=== PATIENT | female | born 1950 | race Caucasian/White ===

== ENCOUNTER 2018-02-15 23:36 | Emergency (ER) | payer MEDICARE ==
[~2018-02-15] VITALS: Ht 157.5 cm; Wt 72.6 kg
[~2018-02-15 23:36] MED LIST: ASPIRIN EC81 MG PO; ASPIRIN325 MG PO; COLACE100 MG PO; FENOFIBRATE160 MG PO; FIORINAL 50-321 EACH PO; FISH OIL 1,0001 EAC1 PO; FISH OIL 1,0001 EAC3 PO; FUROSEMIDE20 MG PO; HUMALOG100 UNIT/1 SUB-Q; LANTUS SOL100 UNIT/1 SUB-Q; LEVEMIR100 UNIT/1 SUB-Q; LIPITOR80 MG PO; LISINOPRIL20 MG PO; MAG DELAY64 MG PO; METFORMIN HCL500 MG PO; METOPROLOL SUCC25 MG PO; NORCO 5-325 TA1 EACH PO; NOVOLOG100 UNITS/ SUB-Q; VALIUM5 MG PO; ZOCOR10 MG PO
[2018-02-15] MEDS ORDERED: VITAMIN D1000 UNIT PO (23:54)
[2018-02-15] MEDS ORDERED: GLUCOPHAGE500 MG PO (23:55)
[2018-02-16] MEDS ORDERED: KEFLEX500 MG PO (04:07)
== END 2018-02-16 04:22 | disposition home or self-care (01) ==
LOC: ED 23:36
DX: N39.0 Urinary tract infection, site not specified (principal); E11.9 Type 2 diabetes mellitus without complications; I10 Essential (primary) hypertension; E78.5 Hyperlipidemia, unspecified; Z87.891 Personal history of nicotine dependence; Z79.899 Other long term (current) drug therapy; Z79.82 Long term (current) use of aspirin; Z79.4 Long term (current) use of insulin
CPT/HCPCS: 36415; 74176; 80053; 81001; 85025; 87077; 87088; 87186; 99284-25

== ENCOUNTER 2019-08-01 19:31 | Emergency (ER) | payer MEDICARE ==
[~2019-08-01] VITALS: Ht 157.5 cm; Wt 61.2 kg
[~2019-08-01 19:31] MED LIST changes: +GLUCOPHAGE500 MG PO; +KEFLEX500 MG PO; +VITAMIN D1000 UNIT PO
[2019-08-01] MEDS ORDERED: INDAPAMIDE1.25 MG PO (19:50)
[2019-08-01] MEDS ORDERED: CEPHALEXIN500 MG PO (19:50)
[2019-08-01] MEDS ORDERED: TORSEMIDE20 MG PO (19:51)
[2019-08-01] MEDS ORDERED: AMLODIPINE BESYL5 MG PO (19:51)
[2019-08-01] MEDS ORDERED: NORCO 5-325 TA1 EACH PO (21:26)
== END 2019-08-01 21:43 | disposition home or self-care (01) ==
LOC: ED 19:31
DX: S63.502A Unspecified sprain of left wrist, initial encounter (principal); S80.02XA Contusion of left knee, initial encounter; S00.83XA Contusion of other part of head, initial encounter; E11.9 Type 2 diabetes mellitus without complications; I10 Essential (primary) hypertension; E78.5 Hyperlipidemia, unspecified; Z79.899 Other long term (current) drug therapy; Z79.82 Long term (current) use of aspirin; Z79.4 Long term (current) use of insulin; W19.XXXA Unspecified fall, initial encounter; Y92.007 Garden or yard of unspecified non-institutional (private) residence as the place of occurrence of the external cause
CPT/HCPCS: 70450; 70486; 73110; 73560; 99284-25

== ENCOUNTER 2019-11-16 17:16 | Emergency (ER) | payer MEDICARE ==
[~2019-11-16] VITALS: Ht 157.5 cm; Wt 63.5 kg
[~2019-11-16 17:16] MED LIST changes: +AMLODIPINE BESYL5 MG PO; +CEPHALEXIN500 MG PO; +INDAPAMIDE1.25 MG PO; +TORSEMIDE20 MG PO
[2019-11-16] MEDS ORDERED: ZOLOFT50 MG PO (17:34)
[2019-11-16] MEDS ORDERED: NITROSTAT0.4 MG SL (17:35)
[2019-11-16] MEDS ORDERED: RENVELA800 MG PO (17:35)
--- NOTE | 2019-11-18 11:26 | EKG ---
[facility] [address] [facility] [place], [place] [address] Signed AV dual-paced rhythm Abnormal ECG No previous ECGs available Confirmed by ARNOLD RUSHING MD ([id number]) on 11/18/2019 11:26:17 AM Electronically Signed By: ARNOLD RUSHING MD 11/18/19 1126 PATIENT NAME: ELBA HOWARD Electrocardiogram DATE OF : 46 PHYSICIAN: ARNOLD RUSHING MD REPORT #: [id number] REPORT IS CONFIDENTIAL AND NOT TO BE RELEASED WITHOUT AUTHORIZATION
== END 2019-11-16 19:25 | disposition home or self-care (01) ==
LOC: ED 17:16
DX: R07.9 Chest pain, unspecified (principal); I12.9 Hypertensive chronic kidney disease with stage 1 through stage 4 chronic kidney disease, or unspecified chronic kidney disease; N18.9 Chronic kidney disease, unspecified; R51.9 Headache, unspecified; E11.22 Type 2 diabetes mellitus with diabetic chronic kidney disease; E78.5 Hyperlipidemia, unspecified; Z79.899 Other long term (current) drug therapy; Z79.82 Long term (current) use of aspirin; Z79.4 Long term (current) use of insulin
CPT/HCPCS: 71045; 80053; 83735; 84484; 85025; 93005; 93010; 99285-25

== ENCOUNTER 2020-02-01 23:06 | Emergency (ER) | payer MEDICARE ==
[~2020-02-01] VITALS: Ht 157.5 cm; Wt 63.5 kg
[~2020-02-01 23:06] MED LIST changes: +NITROSTAT0.4 MG SL; +RENVELA800 MG PO; +ZOLOFT50 MG PO
--- OUTSIDE RECORDS SUMMARY | 2020-02-01 23:08 | XMS ---
PreManage Notification: ELBA HOWARD Security Safety Investigator/Cause Analyst Events No recent Security Events currently on file CRITERIA MET - PDMP CARE PROVIDERS SAGAR [facility] Current PHONE: [phone] Yamileth has no Care Guidelines for this patient. E.Deepa VISIT COUNT ([address] [facility] TOTAL 4 NOTE: Visits indicate total known visits. ED/UCC VISIT TRACKING (12 MO.) 02/01/2020 23:06 [facility] [place] TYPE: Emergency COMPLAINT: - SOB 11/16/2019 17:17 [facility] [place] TYPE: Emergency COMPLAINT: - CHEST WALL PAIN DIAGNOSES: - HEADACHE, UNSPECIFIED - medical terminologist (current) use of aspirin - residential (current) use of insulin - Other chest pain - Type 2 diabetes mellitus with diabetic chronic kidney disease - Other lobsterman (current) drug therapy - Hyperlipidemia, unspecified - Chest pain, unspecified - Chronic kidney disease, unspecified - Hypertensive chronic kidney disease with stage 1 through stage 4 chronic kidney disease, or unspecified chronic kidney disease - Headache, unspecified 08/01/2019 19:33 [facility] [place] TYPE: Emergency COMPLAINT: - FALL, BODY PAIN DIAGNOSES: - Garden or yard of unspecified non-institutional (private) residence as the place of occurrence of the external cause - Pain in left knee - Type 2 diabetes mellitus without complications - Contusion of left knee, initial encounter - Other lobsterman (current) drug therapy - residential (current) use of aspirin - Unspecified fall, initial encounter - Contusion of other part of head, initial encounter - Hyperlipidemia, unspecified - Unspecified sprain of left wrist, initial encounter - Essential (primary) hypertension - residential (current) use of insulin [facility]01/2019 17:[facility] DIAGNOSES: - Vascular Access Problem - Other postprocedural complications of skin and subcutaneous tissue INPATIENT VISIT TRACKING (12 MO.) No inpatient visits to display in this time frame [id number]
--- NOTE | 2020-02-03 13:52 | EKG ---
[facility] [address] [place] [address] Signed Ventricular-paced rhythm Abnormal ECG When compared with ECG of 16-NOV-2019 17:24, Vent. rate has increased BY 20 BPM Confirmed by ARNOLD RUSHING MD ([id number]) on 02/03/2020 1:52:01 PM Electronically Signed By: ARNOLD RUSHING MD 02/03/20 1352 PATIENT NAME: HOWARDELBA Electrocardiogram DATE OF : 46 PHYSICIAN: ARNOLD RUSHING MD REPORT #: [id number] REPORT IS CONFIDENTIAL AND NOT TO BE RELEASED WITHOUT AUTHORIZATION
== END 2020-02-02 01:14 | disposition home or self-care (01) ==
LOC: ED 23:06
DX: J81.1 Chronic pulmonary edema (principal); E78.5 Hyperlipidemia, unspecified; N18.6 End stage renal disease; I12.0 Hypertensive chronic kidney disease with stage 5 chronic kidney disease or end stage renal disease; E11.22 Type 2 diabetes mellitus with diabetic chronic kidney disease; Z87.891 Personal history of nicotine dependence; Z79.899 Other long term (current) drug therapy; Z20.828 Contact with and (suspected) exposure to other viral communicable diseases
CPT/HCPCS: 71045; 80053; 83880; 84484; 85025; 93005; 93010; 96374; 99285-25; C9803; J1940; U0003

== ENCOUNTER 2020-03-13 21:28 | Emergency (ER) | payer MEDICARE ==
[~2020-03-13] VITALS: Ht 157.5 cm; Wt 63.5 kg
--- OUTSIDE RECORDS SUMMARY | 2020-03-13 21:30 | XMS ---
PreManage Notification: ELBA HOWARD Security Leadership Coach Events No recent Security Events currently on file CRITERIA MET - PDMP CARE PROVIDERS SAGAR [facility] Current PHONE: [phone] Yamileth has no Care Guidelines for this patient. E.Deepa V[facility] (12 MO.) [facility] TOTAL 5 NOTE: Visits indicate total known visits. ED/UCC VISIT TRACKING (12 MO.) 03/13/2020 21:28 [facility] [place] TYPE: Emergency COMPLAINT: - ABDOMINAL PAIN 02/01/2020 23:06 [facility] [place] TYPE: Emergency COMPLAINT: - SOB DIAGNOSES: - End stage renal disease - Shortness of breath - Hyperlipidemia, unspecified - Personal history of nicotine dependence - Other residential (current) drug therapy - Hypertensive chronic kidney disease with stage 5 chronic kidney disease or end stage renal disease - Contact with and (suspected) exposure to other viral communicable diseases - Chronic pulmonary edema - Type 2 diabetes mellitus with diabetic chronic kidney disease 11/16/2019 17:17 [facility] [place] TYPE: Emergency COMPLAINT: - CHEST WALL PAIN DIAGNOSES: - HEADACHE, UNSPECIFIED - local intermodal truck driver (current) use of aspirin - custodial (current) use of insulin - Other chest pain - Headache, unspecified - Type 2 diabetes mellitus with diabetic chronic kidney disease - Other residential (current) drug therapy - Hyperlipidemia, unspecified - [...] of left knee, initial encounter - Other residential (current) drug therapy - custodial (current) use of aspirin - Unspecified fall, initial encounter - Contusion of other part of head, initial encounter - Hyperlipidemia, unspecified - Unspecified sprain of left wrist, initial encounter - Essential (primary) hypertension - local intermodal truck driver (current) use of insulin 04/01/2019 17:41 [facility] TYPE: Emergency DIAGNOSES: - Vascular Access Problem - Other postprocedural complications of skin and subcutaneous tissue INPATIENT VISIT TRACKING (12 MO.) No inpatient visits to display in this time frame [email or web address]
[2020-03-13] MEDS ORDERED: COREG12.5 MG PO (21:44)
[2020-03-13] MEDS ORDERED: ASPIRIN81 MG PO (21:44)
[2020-03-13] MEDS ORDERED: CEFDINIR300 MG PO (21:45)
[2020-03-13] MEDS ORDERED: LANTUS SOL100 UNIT/1 SUB-Q (21:46)
--- NOTE | 2020-03-14 12:47 | EKG ---
[facility] [address] [place] [address] Signed Atrial-sensed ventricular-paced rhythm Abnormal ECG When compared with ECG of 01-FEB-2020 23:10, Vent. rate has decreased BY 22 BPM Confirmed by ADARSH ABREU MD ([id number]) on 03/14/2020 12:47:50 PM Electronically Signed By: ADARSH ABREU MD 03/14/20 1247 PATIENT NAME: ELBA HOWARD Electrocardiogram DATE OF : 46 PHYSICIAN: ADARSH ABREU MD REPORT #: [id number] REPORT IS CONFIDENTIAL AND NOT TO BE RELEASED WITHOUT AUTHORIZATION
== END 2020-03-14 08:30 | disposition home or self-care (01) ==
LOC: ED 21:28
DX: K65.9 Peritonitis, unspecified (principal); Z99.2 Dependence on renal dialysis; E11.22 Type 2 diabetes mellitus with diabetic chronic kidney disease; I12.0 Hypertensive chronic kidney disease with stage 5 chronic kidney disease or end stage renal disease; E78.5 Hyperlipidemia, unspecified; N18.6 End stage renal disease; Z79.899 Other long term (current) drug therapy; Z79.4 Long term (current) use of insulin; Z79.82 Long term (current) use of aspirin
CPT/HCPCS: 74176; 80053; 81001; 82945; 83690; 84157; 84484; 85025; 87070; 87075; 87076; 87077; 87185; 87186; 87205; 89051; 93005; 93010; 96374; 96375; 96376; 99284-25; J0713; J1170; J2405; J3370

== ENCOUNTER 2020-08-22 16:36 | Emergency (ER) | payer MEDICARE ==
[~2020-08-22] VITALS: Ht 157.5 cm; Wt 63.5 kg
[~2020-08-22 16:36] MED LIST changes: +ASPIRIN81 MG PO; +CEFDINIR300 MG PO; +COREG12.5 MG PO
[2020-08-22] MEDS ORDERED: HYDROCODON-ACE1 EA10 PO (19:15)
== END 2020-08-22 19:49 | disposition home or self-care (01) ==
LOC: ED 16:36
DX: S83.92XA Sprain of unspecified site of left knee, initial encounter (principal); S93.402A Sprain of unspecified ligament of left ankle, initial encounter; W18.30XA Fall on same level, unspecified, initial encounter; E11.22 Type 2 diabetes mellitus with diabetic chronic kidney disease; I12.0 Hypertensive chronic kidney disease with stage 5 chronic kidney disease or end stage renal disease; E78.5 Hyperlipidemia, unspecified; N18.6 End stage renal disease; Z99.2 Dependence on renal dialysis; Z79.899 Other long term (current) drug therapy; Z79.4 Long term (current) use of insulin; Z79.82 Long term (current) use of aspirin
CPT/HCPCS: 73560; 73610; 99283-25

== ENCOUNTER 2020-08-28 15:58 | Emergency (ER) | payer MEDICARE ==
[~2020-08-28] VITALS: Ht 157.5 cm; Wt 63.5 kg
[~2020-08-28 15:58] MED LIST changes: +HYDROCODON-ACE1 EA10 PO
--- OUTSIDE RECORDS SUMMARY | 2020-08-28 16:00 | XMS ---
PreManage Notification: ELBA HOWARD Security Microfilm Camera Operator Events No recent Security Events currently on file CRITERIA MET - [facility] - 2 Visits in 30 Days - [facility] CARE PROVIDERS SAGAR [facility] Current PHONE: [phone] Yamileth has no Care Guidelines for this patient. E.Deepa VISIT COUNT (12 MO.) [address] TOTAL 6 NOTE: Visits indicate total known visits. ED/C VISIT TRACKING (12 MO.) 08/28/2020 15:59 [facility] TYPE: Emergency COMPLAINT: - R SIDE RIB PAIN 08/22/2020 16:37 [facility] TYPE: Emergency COMPLAINT: - LEFT KNEE AND ANKLE INJURY DIAGNOSES: - End stage renal disease - Sprain of unspecified ligament of left ankle, initial encounter - Dependence on renal dialysis - Type 2 diabetes mellitus with diabetic chronic kidney disease - Hypertensive chronic kidney disease with stage 5 chronic kidney disease or end stage renal disease - terminal system operator (current) use of aspirin - terminal system operator (current) use of insulin - Other penitentiary (current) drug therapy - Hyperlipidemia, unspecified - Sprain of unspecified site of left knee, initial encounter - Fall on same level, unspecified, initial encounter [facility]14/2020 20:[facility] TYPE: Emergency DIAGNOSES: - Abdominal Cramping - Peritonitis, unspecified - Dialysis (Asymptomatic) - Vascular Access Problem - Infection and inflammatory reaction due to peritoneal dialysis catheter, initial encounter 03/13/2020 21:28 [facility] TYPE: Emergency COMPLAINT: - ABDOMINAL PAIN DIAGNOSES: - Dependence on renal dialysis - End stage renal disease - terminal system operator (current) use of aspirin - Hypertensive chronic kidney disease with stage 5 chronic kidney disease or end stage renal disease - Type 2 diabetes mellitus with diabetic chronic kidney disease - Unspecified abdominal pain - Peritonitis, unspecified - [facility] (current) use of insulin - Other marine oil terminal superintendent (current) drug therapy - Hyperlipidemia, unspecified 02/01/2020 23:06 [facility] TYPE: Emergency COMPLAINT: - SOB DIAGNOSES: - End stage renal disease - Shortness of breath - Hyperlipidemia, unspecified - Personal history of nicotine dependence - Other penitentiary (current) drug therapy - Hypertensive chronic kidney disease with stage 5 chronic kidney disease or end stage renal disease - Contact with and (suspected) exposure to other viral communicable diseases - Chronic pulmonary edema - Type 2 diabetes mellitus with diabetic chronic kidney disease 11/16/2019 17:17 [facility] [place] TYPE: Emergency COMPLAINT: - CHEST WALL PAIN DIAGNOSES: - HEADACHE, UNSPECIFIED - [facility] (current) use of aspirin - [facility] (current) use of insulin - Other chest pain - Headache, unspecified - Type 2 diabetes mellitus with diabetic chronic kidney disease - Other marine oil terminal superintendent (current) drug therapy - Hyperlipidemia, unspecified - Chest pain, unspecified - Chronic kidney disease, unspecified - Hypertensive chronic kidney disease with stage 1 through stage 4 chronic kidney disease, or unspecified chronic kidney disease - Headache, unspecified INPATIENT VISIT TRACKING (12 MO.) 03/14/2020 20:37 [facility] TYPE: Internal Medicine DIAGNOSES: - Disorder of bone, unspecified - Other specified disorders of peritoneum - Fever, unspecified - Acidosis - Hyperkalemia - Other disorders of plasma-protein metabolism, not elsewhere classified - Anemia in chronic kidney disease - Fistula of intestine - Type 2 diabetes mellitus with hyperglycemia - Female pelvic inflammatory disease, unspecified - Chronic kidney disease, unspecified - Infection and inflammatory reaction due to peritoneal dialysis catheter, subsequent encounter - Elevated white blood cell count, unspecified - Bacterial infection, unspecified - Unspecified severe protein-calorie malnutrition - Dependence on renal dialysis - Infection and inflammatory reaction due to peritoneal dialysis catheter, initial encounter - Other specified personal risk factors, not elsewhere classified - Other disorders of phosphorus metabolism - Disorder of mineral metabolism, unspecified - Other specified symptoms and signs involving the digestive system and abdomen - Essential (primary) hypertension - Peritonitis, unspecified - Perforation of intestine (nontraumatic) - Cutaneous abscess of abdominal wall - Atherosclerotic heart disease of [place] coronary artery without angina pectoris - Moderate protein-calorie malnutrition - End stage renal disease [id number]
[2020-08-28] MEDS ORDERED: HYDROCODON-ACE1 EA10 PO (18:38)
== END 2020-08-28 18:46 | disposition home or self-care (01) ==
LOC: ED 15:58
DX: S20.211A Contusion of right front wall of thorax, initial encounter (principal); X58.XXXA Exposure to other specified factors, initial encounter; E11.22 Type 2 diabetes mellitus with diabetic chronic kidney disease; I12.0 Hypertensive chronic kidney disease with stage 5 chronic kidney disease or end stage renal disease; E78.5 Hyperlipidemia, unspecified; N18.6 End stage renal disease; Z99.2 Dependence on renal dialysis; Z79.899 Other long term (current) drug therapy; Z79.4 Long term (current) use of insulin; Z79.82 Long term (current) use of aspirin
CPT/HCPCS: 71101; 99284-25

== ENCOUNTER 2020-10-03 21:01 | Emergency (ER) | payer MEDICARE ==
[~2020-10-03] VITALS: Ht 157.5 cm; Wt 63.5 kg
[2020-10-03] MEDS ORDERED: COLACE100 MG PO (22:04)
[2020-10-03] MEDS ORDERED: COREG3.125 MG PO (22:05)
[2020-10-03] MEDS ORDERED: COZAAR25 MG PO (22:06)
[2020-10-03] MEDS ORDERED: LIPITOR20 MG PO (22:07)
[2020-10-03] MEDS ORDERED: NEPHRO-VITE TA0.8 MG PO (22:07)
[2020-10-03] MEDS ORDERED: PEPCID20 MG PO (22:08)
[2020-10-03] MEDS ORDERED: MIDODRINE HCL5 MG PO (22:08)
[2020-10-03] MEDS ORDERED: SYNTHROID50 MCG PO (22:09)
[2020-10-03] MEDS ORDERED: ZOLOFT50 MG PO (22:09)
[2020-10-03] MEDS ORDERED: RENVELA800 MG PO (22:09)
[2020-10-03] MEDS ORDERED: OXYCODONE HCL5 MG PO (22:10)
[2020-10-03] MEDS ORDERED: MEGESTROL ACETA40 MG PO (22:10)
[2020-10-03] MEDS ORDERED: ZOLPIDEM TARTRAT5 MG PO (22:11)
--- OUTSIDE RECORDS SUMMARY | 2020-10-03 22:13 | XMS ---
PreManage Notification: ELBA HOWARD Security Product Development Actuary Events No recent Security Events currently on file CRITERIA MET - PDMP CARE PROVIDERS SAGAR [facility] Current PHONE: [phone] Yamileth has no Care Guidelines for this patient. E.Deepa VISIT COUNT ([address] [facility] TOTAL 7 NOTE: Visits indicate total known visits. ED/UCC VISIT TRACKING (12 MO.) 10/03/2020 21:02 [facility] [place] TYPE: Emergency COMPLAINT: - NECK PAIN 08/28/2020 15:59 [facility] [place] TYPE: Emergency COMPLAINT: - R SIDE RIB PAIN/ NON INJ DIAGNOSES: - Contusion of right front wall of thorax, initial encounter - Dependence on renal dialysis - Other bed bug exterminator (current) drug therapy - End stage renal disease - Hypertensive chronic kidney disease with stage 5 chronic kidney disease or end stage renal disease - Exposure to other specified factors, initial encounter - Type 2 diabetes mellitus with diabetic chronic kidney disease - Hyperlipidemia, unspecified - Other chest pain - terminologist (current) use of aspirin - terminologist (current) use of insulin 08/22/2020 16:37 [facility] [place] TYPE: Emergency COMPLAINT: - LEFT KNEE AND ANKLE INJURY DIAGNOSES: - End stage renal disease - Sprain of unspecified ligament of left ankle, initial encounter - Dependence on renal dialysis - Type 2 diabetes mellitus with diabetic chronic kidney disease - Hypertensive chronic kidney disease with stage 5 chronic kidney disease or end stage renal disease - terminologist (current) use of aspirin - [facility] (current) use of insulin - Other bed bug exterminator (current) drug therapy - Hyperlipidemia, unspecified - Sprain of unspecified site of left knee, initial encounter - Fall on same level, unspecified, initial encounter 03/14/2020 20:37 [facility] TYPE: Emergency DIAGNOSES: - Abdominal Cramping - Peritonitis, unspecified - Dialysis (Asymptomatic) - Vascular Access Problem - Infection and inflammatory reaction due to peritoneal dialysis catheter, initial encounter 03/13/2020 21:28 [facility] [place] TYPE: Emergency COMPLAINT: - ABDOMINAL PAIN DIAGNOSES: - Dependence on renal dialysis - End stage renal disease - [facility] (current) use of aspirin - Hypertensive chronic kidney disease with stage 5 chronic kidney disease or end stage renal disease - Type 2 diabetes mellitus with diabetic chronic kidney disease - Unspecified abdominal pain - Peritonitis, unspecified - [facility] (current) use of insulin - Other custodial (current) drug therapy - Hyperlipidemia, unspecified 02/01/2020 23:06 [facility] [place] TYPE: Emergency COMPLAINT: - SOB DIAGNOSES: - End stage renal disease - Shortness of breath - Hyperlipidemia, unspecified - Personal history of nicotine dependence - Other custodial (current) drug therapy - Hypertensive chronic kidney disease with stage 5 chronic kidney disease or end stage renal disease - Contact with and (suspected) exposure to other viral communicable diseases - Chronic pulmonary edema - Type 2 diabetes mellitus with diabetic chronic kidney disease 11/16/2019 17:17 [facility] [place] TYPE: Emergency COMPLAINT: - CHEST WALL PAIN DIAGNOSES: - HEADACHE, UNSPECIFIED - [facility] (current) use of aspirin - [facility] (current) use of insulin - Other chest pain - Headache, unspecified - Type 2 diabetes mellitus with diabetic chronic kidney disease - Other bed bug exterminator (current) drug therapy - Hyperlipidemia, unspecified - Chest pain, unspecified - Chronic kidney disease, unspecified - Hypertensive chronic kidney disease with stage 1 through stage 4 chronic kidney disease, or unspecified chronic kidney disease - Headache, unspecified INPATIENT VISIT TRACKING (12 MO.) 03/14/2020 20:37 [facility] TYPE: Internal Medicine DIAGNOSES: - Disorder of [...] abdominal wall - Atherosclerotic heart disease of [place] coronary artery without angina pectoris - Moderate protein-calorie malnutrition - End stage renal disease [email or web address]
[2020-10-03] MEDS ORDERED: PREDNISONE20 MG PO (23:39)
== END 2020-10-04 00:07 | disposition home or self-care (01) ==
LOC: ED 21:01
DX: I77.6 Arteritis, unspecified (principal); I12.0 Hypertensive chronic kidney disease with stage 5 chronic kidney disease or end stage renal disease; E11.22 Type 2 diabetes mellitus with diabetic chronic kidney disease; N18.6 End stage renal disease; Z99.2 Dependence on renal dialysis; E78.5 Hyperlipidemia, unspecified; Z79.899 Other long term (current) drug therapy; Z79.82 Long term (current) use of aspirin; Z79.4 Long term (current) use of insulin
CPT/HCPCS: 70450; 72125; 80053; 85025; 85651; 96374; 96376; 99284-25; J3010; J7512

== ENCOUNTER 2020-12-07 10:40 | Emergency (ER) | payer OTHER, MEDICARE ==
[~2020-12-07] VITALS: Ht 157.5 cm; Wt 59.1 kg
[~2020-12-07 10:40] MED LIST changes: +COREG3.125 MG PO; +COZAAR25 MG PO; +LIPITOR20 MG PO; +MEGESTROL ACETA40 MG PO; +MIDODRINE HCL5 MG PO; +NEPHRO-VITE TA0.8 MG PO; +OXYCODONE HCL5 MG PO; +PEPCID20 MG PO; +PREDNISONE20 MG PO; +SYNTHROID50 MCG PO; +ZOLPIDEM TARTRAT5 MG PO
--- OUTSIDE RECORDS SUMMARY | 2020-12-07 10:44 | XMS ---
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 E.Deepa VISIT COUNT (12 MO.) [facility] TOTAL 7 NOTE: Visits indicate total known visits. ED/UCC VISIT TRACKING (12 MO.) 12/07/2020 10:41 [facility] [place] TYPE: Emergency COMPLAINT: - FALL, LOWER BACK PAIN, WEAK 10/03/2020 21:02 [facility] [place] TYPE: Emergency COMPLAINT: - NECK PAIN DIAGNOSES: - Other giant cell arteritis - Hyperlipidemia, unspecified - Other medical imaging technologist (current) drug therapy - Hypertensive chronic kidney disease with stage 5 chronic kidney disease or end stage renal disease - End stage renal disease - Headache, unspecified - alarm installation technician (current) use of insulin - Arteritis, unspecified - alarm installation technician (current) use of oral hypoglycemic drugs - alarm installation technician (current) use of aspirin - Dependence on renal dialysis - Type 2 diabetes mellitus with diabetic chronic kidney disease 08/28/2020 15:59 [facility] [place] TYPE: Emergency COMPLAINT: - R SIDE RIB PAIN/ NON INJ DIAGNOSES: - Contusion of right front wall of thorax, initial encounter - Dependence on renal dialysis - Other [facility] (current) drug therapy - End stage renal disease - Hypertensive chronic kidney disease with stage 5 chronic kidney disease or end stage renal disease - Exposure to other specified factors, initial encounter - Type 2 diabetes mellitus with diabetic chronic kidney disease - Hyperlipidemia, unspecified - Other chest pain - [facility] (current) use of aspirin - [facility] (current) use of insulin 08/22/2020 16:37 [facility] TYPE: Emergency COMPLAINT: - LEFT KNEE AND ANKLE INJURY DIAGNOSES: - End stage renal disease - Sprain of unspecified ligament of left ankle, initial encounter - Dependence on renal dialysis - Type 2 diabetes mellitus with diabetic chronic kidney disease - Hypertensive chronic kidney disease with stage 5 chronic kidney disease or end stage renal disease - [facility] (current) use of aspirin - alarm installation technician (current) use of insulin - Other medical imaging technologist (current) drug therapy - Hyperlipidemia, unspecified - Sprain of unspecified site of left knee, initial encounter - Fall on same level, unspecified, initial encounter 03/14/2020 20:37 [facility] TYPE: Emergency DIAGNOSES: - Abdominal Cramping - Peritonitis, unspecified - Dialysis (Asymptomatic) - Vascular Access Problem - Infection and inflammatory reaction due to peritoneal dialysis catheter, initial encounter 03/13/2020 21:28 [facility] [place] TYPE: Emergency COMPLAINT: - ABDOMINAL PAIN DIAGNOSES: - Dependence on renal dialysis - End stage renal disease - alarm installation technician (current) use of aspirin - Hypertensive chronic kidney disease with stage 5 chronic kidney disease or end stage renal disease - Type 2 diabetes mellitus with diabetic chronic kidney disease - Unspecified abdominal pain - Peritonitis, unspecified - [facility] (current) use of insulin - Other usp (current) drug therapy - Hyperlipidemia, unspecified 02/01/2020 23:06 [facility] [place] TYPE: Emergency COMPLAINT: - SOB DIAGNOSES: - End stage renal disease - Shortness of breath - Hyperlipidemia, unspecified - Personal history of nicotine dependence - Other usp (current) drug therapy - Hypertensive chronic kidney disease with stage 5 chronic kidney disease or end stage renal disease - Contact with and (suspected) exposure to other viral communicable diseases - Chronic pulmonary edema - Type 2 diabetes mellitus with diabetic chronic kidney disease INPATIENT VISIT TRACKING (12 MO.) 03/14/2020 20:37 [facility] TYPE: Internal Medicine DIAGNOSES: - Disorder [...] abdominal wall - Atherosclerotic heart disease of [place] coronary artery without angina pectoris - Moderate protein-calorie malnutrition - End stage renal disease [email or web address]
[2020-12-07] MEDS ORDERED: DIAZEPAM5 MG PO (11:08)
[2020-12-07] MEDS ORDERED: AMLODIPINE BESYL5 MG PO (11:08)
== END 2020-12-07 14:11 | disposition home or self-care (01) ==
LOC: ED 10:40
DX: S83.92XA Sprain of unspecified site of left knee, initial encounter (principal); R07.89 Other chest pain; W18.30XA Fall on same level, unspecified, initial encounter; E78.5 Hyperlipidemia, unspecified; E11.22 Type 2 diabetes mellitus with diabetic chronic kidney disease; I12.0 Hypertensive chronic kidney disease with stage 5 chronic kidney disease or end stage renal disease; Z79.899 Other long term (current) drug therapy; Z79.82 Long term (current) use of aspirin
CPT/HCPCS: 71046; 72100; 72170; 73560; 80053; 85025; 99283-25

== ENCOUNTER 2020-12-09 07:48 | Emergency (ER) | payer MEDICARE ==
[~2020-12-09] VITALS: Ht 157.5 cm; Wt 59.0 kg
[~2020-12-09 07:48] MED LIST changes: +DIAZEPAM5 MG PO
--- OUTSIDE RECORDS SUMMARY | 2020-12-09 07:52 | XMS ---
PreManage Notification: ELBA HOWARD Security Heating Operators Engineer Events No recent Security Events currently on file CRITERIA MET - [facility] - 2 Visits in 30 Days - [facility] CARE PROVIDERS [facility] Current PHONE: [phone] Yamileth has no Care Guidelines for this patient. E.Deepa VISIT COUNT (12 MO.) [address] TOTAL 8 NOTE: Visits indicate total known visits. ED/UCC VISIT TRACKING (12 MO.) 12/09/2020 07:49 [facility] [place] TYPE: Emergency COMPLAINT: - R SIDE OF BODY PAIN, HURTS TO SWALLOW 12/07/2020 10:41 [facility] [place] TYPE: Emergency COMPLAINT: - FALL, LOWER BACK PAIN, WEAK 10/03/2020 21:02 [facility] [place] TYPE: Emergency COMPLAINT: - NECK PAIN DIAGNOSES: - Other giant cell arteritis - Hyperlipidemia, unspecified - Other [facility] (current) drug therapy - Hypertensive chronic kidney disease with stage 5 chronic kidney disease or end stage renal disease - End stage renal disease - Headache, unspecified - marine oil terminal superintendent (current) use of insulin - Arteritis, unspecified - intermediate (current) use of oral hypoglycemic drugs - marine oil terminal superintendent (current) use of aspirin - Dependence on renal dialysis - Type 2 diabetes mellitus with diabetic chronic kidney disease 08/28/2020 15:59 [facility] [place] TYPE: Emergency COMPLAINT: - R SIDE RIB PAIN/ NON INJ DIAGNOSES: - Contusion of right front wall of thorax, initial encounter - Dependence on renal dialysis - Other [facility] (current) drug therapy - End stage renal disease - Hypertensive chronic kidney disease with stage 5 chronic kidney disease or end stage renal disease - Exposure to other specified factors, initial encounter - Type 2 diabetes mellitus with diabetic chronic kidney disease - Hyperlipidemia, unspecified - Other chest pain - marine oil terminal superintendent (current) use of aspirin - marine oil terminal superintendent (current) use of insulin 08/22/2020 16:37 ESTELA [...] disease or end stage renal disease - marine oil terminal superintendent (current) use of aspirin - intermediate (current) use of insulin - Other [facility] (current) drug therapy - Hyperlipidemia, unspecified - Sprain of unspecified site of left knee, initial encounter - Fall on same level, unspecified, initial encounter 03/14/2020 20:37 [facility] [place] TYPE: Emergency DIAGNOSES: - Abdominal Cramping - Peritonitis, unspecified - Dialysis (Asymptomatic) - Vascular Access Problem - Infection and inflammatory reaction due to peritoneal dialysis catheter, initial encounter 03/13/2020 21:28 [facility]EL[facility] Reyez TYPE: Emergency COMPLAINT: - ABDOMINAL PAIN DIAGNOSES: - Dependence on renal dialysis - End stage renal disease - marine oil terminal superintendent (current) use of aspirin - Hypertensive chronic kidney disease with stage 5 chronic kidney disease or end stage renal disease - Type 2 diabetes mellitus with diabetic chronic kidney disease - Unspecified abdominal pain - Peritonitis, unspecified - intermediate (current) use of insulin - Other [facility] (current) drug therapy - Hyperlipidemia, unspecified 02/01/2020 23:06 [facility] [place] TYPE: Emergency COMPLAINT: - SOB DIAGNOSES: - End stage renal disease - Shortness of breath - Hyperlipidemia, unspecified - Personal history of nicotine dependence - Other terminal block assembler (current) drug therapy - Hypertensive chronic kidney disease with stage 5 chronic kidney disease or end stage renal disease - Contact with and (suspected) exposure to other viral communicable diseases - Chronic pulmonary edema - Type 2 diabetes mellitus with diabetic chronic kidney disease INPATIENT VISIT TRACKING (12 MO.) 03/14/2020 20:37 [facility] [place] [facility] [place] TYPE: Internal Medicine DIAGNOSES: - Disorder of [...] abdominal wall - Atherosclerotic heart disease of [place] coronary artery without angina pectoris - Moderate protein-calorie malnutrition - End stage renal disease [email or web address]
[2020-12-09] MEDS ORDERED: PENICILLIN V P500 MG PO (14:14)
[2020-12-09] MEDS ORDERED: OXYCODONE HCL5 MG PO (14:14)
--- NOTE | 2020-12-09 20:04 | EKG ---
[facility] [address] [place] [address] Signed AV dual-paced rhythm Abnormal ECG When compared with ECG of 13-MAR-2020 23:57, Vent. rate has decreased BY 20 BPM Confirmed by ADARSH ABREU MD ([id number]) on 12/09/2020 8:04:10 PM Electronically Signed By: ADARSH ABREU MD 12/09/202003 PATIENT NAME: ELBA HOWARD Electrocardiogram DATE OF : 46 PHYSICIAN: ADARSH ABREU MD REPORT #: [id number] REPORT IS CONFIDENTIAL AND NOT TO BE RELEASED WITHOUT AUTHORIZATION
== END 2020-12-09 14:32 | disposition home or self-care (01) ==
LOC: ED 07:48
DX: S50.02XA Contusion of left elbow, initial encounter (principal); K04.7 Periapical abscess without sinus; I12.0 Hypertensive chronic kidney disease with stage 5 chronic kidney disease or end stage renal disease; E11.22 Type 2 diabetes mellitus with diabetic chronic kidney disease; E78.5 Hyperlipidemia, unspecified; N18.6 End stage renal disease; Z79.899 Other long term (current) drug therapy; Z79.82 Long term (current) use of aspirin; Z79.4 Long term (current) use of insulin
CPT/HCPCS: 70486; 73080; 73200; 80053; 82150; 85025; 85651; 86140; 93005; 93010; 96374; 96376; 99284-25; J2270

== ENCOUNTER 2021-02-01 14:24 | Emergency (ER) | payer MEDICARE ==
[~2021-02-01] VITALS: Ht 157.5 cm; Wt 59.0 kg
[~2021-02-01 14:24] MED LIST changes: +PENICILLIN V P500 MG PO
--- OUTSIDE RECORDS SUMMARY | 2021-02-01 14:26 | XMS ---
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 E.Deepa VISIT COUNT (12 MO.) [address] [place] [address] ESTELA Campa TOTAL 8 NOTE: Visits indicate total known visits. ED/UCC VISIT TRACKING (12 MO.) 02/01/2021 14:25 [facility] [place] TYPE: Emergency COMPLAINT: - LT KNEE PAIN/INJURY 12/09/2020 07:49 [facility] [place] TYPE: Emergency COMPLAINT: - R SIDE OF BODY PAIN, HURTS TO SWALLOW DIAGNOSES: - Periapical abscess without sinus - Type 2 diabetes mellitus with diabetic chronic kidney disease - longterm (current) use of aspirin - Other snf (current) drug therapy - Contusion of left elbow, initial encounter - End stage renal disease - Periapical abscess without sinus - Contusion of left elbow, initial encounter - Hypertensive chronic kidney disease with stage 5 chronic kidney disease or end stage renal disease - Hyperlipidemia, unspecified - longterm (current) use of insulin 12/07/2020 10:41 [facility] [place] TYPE: Emergency COMPLAINT: - FALL, LOWER BACK PAIN, WEAK DIAGNOSES: - Hypertensive chronic kidney disease with stage 5 chronic kidney disease or end stage renal disease - longterm (current) use of aspirin - Type 2 diabetes mellitus with diabetic chronic kidney disease - Other snf (current) drug therapy - Other chest pain - Fall on same level, unspecified, initial encounter - Sprain of unspecified site of left knee, initial encounter - Hyperlipidemia, unspecified 10/03/2020 21:02 [facility] [place] TYPE: Emergency COMPLAINT: - NECK PAIN DIAGNOSES: - Other giant cell arteritis - Hyperlipidemia, unspecified - Other snf (current) drug therapy - Hypertensive chronic kidney disease with stage 5 chronic kidney disease or end stage renal disease - End stage renal disease - Headache, unspecified - longterm (current) use of insulin - Arteritis, unspecified - terminal manager (current) use of oral hypoglycemic drugs - terminal manager (current) use of aspirin - Dependence on renal dialysis - Type 2 diabetes mellitus with diabetic chronic kidney disease 08/28/2020 15:59 [facility] [place] TYPE: Emergency COMPLAINT: - R SIDE RIB PAIN/ NON INJ DIAGNOSES: - Contusion of right front wall of thorax, initial encounter - Dependence on renal dialysis - Other snf (current) drug therapy - End stage renal disease - Hypertensive chronic kidney disease with stage 5 chronic kidney disease or end stage renal disease - Exposure to other specified factors, initial encounter - Type 2 diabetes mellitus with diabetic chronic kidney disease - Hyperlipidemia, unspecified - Other chest pain - terminal manager (current) use of aspirin - longterm (current) use of insulin 08/22/2020 16:37 ESTELA [...] disease or end stage renal disease - longterm (current) use of aspirin - terminal manager (current) use of insulin - Other snf (current) drug therapy - Hyperlipidemia, unspecified - Sprain of unspecified site of left knee, initial encounter - Fall on same level, unspecified, initial encounter 03/14/2020 20:37 [facility] TYPE: Emergency DIAGNOSES: - Abdominal Cramping - Peritonitis, unspecified - Dialysis (Asymptomatic) - Vascular Access Problem - Infection and inflammatory reaction due to peritoneal dialysis catheter, initial encounter 03/13/2020 21:28 [facility] [place] TYPE: Emergency COMPLAINT: - ABDOMINAL PAIN DIAGNOSES: - Dependence on renal dialysis - End stage renal disease - longterm (current) use of aspirin - Hypertensive chronic kidney disease with stage 5 chronic kidney disease or end stage renal disease - Type 2 diabetes mellitus with diabetic chronic kidney disease - Unspecified abdominal pain - Peritonitis, unspecified - terminal manager (current) use of insulin - Other termite control representative (current) drug therapy - Hyperlipidemia, unspecified INPATIENT VISIT TRACKING (12 MO.) 03/14/2020 20:37 [facility] TYPE: Internal Medicine DIAGNOSES: - Disorder [...] abdominal wall - Atherosclerotic heart disease of ione coronary artery without angina pectoris - Moderate protein-calorie malnutrition - End stage renal disease [email or web address]
[2021-02-01] MEDS ORDERED: GABAPENTIN300 MG PO (15:26)
== END 2021-02-01 17:45 | disposition home or self-care (01) ==
LOC: ED 14:24
DX: S80.02XA Contusion of left knee, initial encounter (principal); R10.13 Epigastric pain; E78.5 Hyperlipidemia, unspecified; I12.0 Hypertensive chronic kidney disease with stage 5 chronic kidney disease or end stage renal disease; E11.22 Type 2 diabetes mellitus with diabetic chronic kidney disease; N18.6 End stage renal disease; Z79.899 Other long term (current) drug therapy; Z79.82 Long term (current) use of aspirin; Z79.4 Long term (current) use of insulin; X58.XXXA Exposure to other specified factors, initial encounter
CPT/HCPCS: 73560; 74176; 80053; 81001; 83690; 85025; 99284-25

== ENCOUNTER 2021-04-03 15:49 | Emergency (ER) | payer MEDICARE ==
[~2021-04-03] VITALS: Ht 157.5 cm; Wt 59.0 kg
[~2021-04-03 15:49] MED LIST changes: +GABAPENTIN300 MG PO
--- OUTSIDE RECORDS SUMMARY | 2021-04-03 15:52 | XMS ---
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 EMalcolm VISIT COUNT (12 MO.) 7 ESTELA Campa TOTAL 7 NOTE: Visits indicate total known visits. ED/UCC VISIT TRACKING (12 MO.) 04/03/2021 15:50 [facility] [place] TYPE: Emergency COMPLAINT: - RT ARM PAIN 02/01/2021 14:25 [facility] [place] TYPE: Emergency COMPLAINT: - LT KNEE PAIN/INJURY DIAGNOSES: - Pain in left knee - Hypertensive chronic kidney disease with stage 5 chronic kidney disease or end stage renal disease - Type 2 diabetes mellitus with diabetic chronic kidney disease - custodial (current) use of aspirin - Epigastric pain - assistant credit manager (current) use of insulin - Exposure to other specified factors, initial encounter - Epigastric pain - Hyperlipidemia, unspecified - End stage renal disease - Other fpc (current) drug therapy - Contusion of left knee, initial encounter 12/09/2020 07:49 [facility] [place] TYPE: Emergency COMPLAINT: - R SIDE OF BODY PAIN, HURTS TO SWALLOW DIAGNOSES: - Periapical abscess without sinus - Type 2 diabetes mellitus with diabetic chronic kidney disease - assistant credit manager (current) use of aspirin - Other fpc (current) drug therapy - Contusion of left elbow, initial encounter - End stage renal disease - Periapical abscess without sinus - Contusion of left elbow, initial encounter - Hypertensive chronic kidney disease with stage 5 chronic kidney disease or end stage renal disease - Hyperlipidemia, unspecified - assistant credit manager (current) use of insulin 12/07/2020 10:41 [facility] [place] TYPE: Emergency COMPLAINT: - FALL, LOWER BACK PAIN, WEAK DIAGNOSES: - Hypertensive chronic kidney disease with stage 5 chronic kidney disease or end stage renal disease - assistant credit manager (current) use of aspirin - Type 2 diabetes mellitus with diabetic chronic kidney disease - Other shot fireman (current) drug therapy - Other chest pain - Fall on same level, unspecified, initial encounter - Sprain of unspecified site of left knee, initial encounter - Hyperlipidemia, unspecified 10/03/2020 21:02 [facility] [place] TYPE: Emergency COMPLAINT: - NECK PAIN DIAGNOSES: - Other giant cell arteritis - Hyperlipidemia, unspecified - Other shot fireman (current) drug therapy - Hypertensive chronic kidney disease with stage 5 chronic kidney disease or end stage renal disease - End stage renal disease - Headache, unspecified - assistant credit manager (current) use of insulin - Arteritis, unspecified - custodial (current) use of oral hypoglycemic drugs - custodial (current) use of aspirin - Dependence on renal dialysis - Type 2 diabetes mellitus with diabetic chronic kidney disease 08/28/2020 15:59 [facility] [place] TYPE: Emergency COMPLAINT: - R SIDE RIB PAIN/ NON INJ DIAGNOSES: - Contusion of right front wall of thorax, initial encounter - Dependence on renal dialysis - Other fpc (current) drug therapy - End stage renal disease - Hypertensive chronic kidney disease with stage 5 chronic kidney disease or end stage renal disease - Exposure to other specified factors, initial encounter - Type 2 diabetes mellitus with diabetic chronic kidney disease - Hyperlipidemia, unspecified - Other chest pain - assistant credit manager (current) use of aspirin - custodial (current) use of insulin 08/22/2020 16:37 ESTEL[facility] [...] disease or end stage renal disease - custodial (current) use of aspirin - custodial (current) use of insulin - Other shot fireman (current) drug therapy - Hyperlipidemia, unspecified - Sprain of unspecified site of left knee, initial encounter - Fall on same level, unspecified, initial encounter INPATIENT VISIT TRACKING (12 MO.) No inpatient visits to display in this time frame [id number]
== END 2021-04-03 18:00 | disposition home or self-care (01) ==
LOC: ED 15:49
DX: M79.601 Pain in right arm (principal); G89.18 Other acute postprocedural pain; E78.5 Hyperlipidemia, unspecified; I12.0 Hypertensive chronic kidney disease with stage 5 chronic kidney disease or end stage renal disease; E11.22 Type 2 diabetes mellitus with diabetic chronic kidney disease; N18.6 End stage renal disease; Z79.82 Long term (current) use of aspirin; Z79.4 Long term (current) use of insulin; Z79.899 Other long term (current) drug therapy
CPT/HCPCS: 99283

== ENCOUNTER 2021-04-13 09:55 | Emergency (ER) | payer MEDICARE ==
[~2021-04-13] VITALS: Ht 157.5 cm; Wt 55.3 kg
--- OUTSIDE RECORDS SUMMARY | 2021-04-13 09:58 | XMS ---
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 Audrey VISIT COUNT (12 MO.) [address] [place] [address] TOTAL 8 NOTE: Visits indicate total known visits. ED/UCC VISIT TRACKING (12 MO.) 04/13/2021 09:56 [facility] [place] TYPE: Emergency COMPLAINT: - CHEST PAIN 04/03/2021 15:50 [facility] [place] TYPE: Emergency COMPLAINT: - RT ARM PAIN/ NON INJURY DIAGNOSES: - Other acute postprocedural pain - terminologist (current) use of insulin - Hypertensive chronic kidney disease with stage 5 chronic kidney disease or end stage renal disease - Type 2 diabetes mellitus with diabetic chronic kidney disease - Pain in right arm - long-term (current) use of aspirin - End stage renal disease - Other jail (current) drug therapy - Hyperlipidemia, unspecified 02/01/2021 14:25 [facility] [place] TYPE: Emergency COMPLAINT: - LT KNEE PAIN/INJURY DIAGNOSES: - Pain in left knee - Hypertensive chronic kidney disease with stage 5 chronic kidney disease or end stage renal disease - Type 2 diabetes mellitus with diabetic chronic kidney disease - long-term (current) use of aspirin - Epigastric pain - long-term (current) use of insulin - Exposure to other specified factors, initial encounter - Epigastric pain - Hyperlipidemia, unspecified - End stage renal disease - Other adjunct faculty for medical terminology (current) drug therapy - Contusion of left knee, initial encounter 12/09/2020 07:49 [facility] [place] TYPE: Emergency COMPLAINT: - R SIDE OF BODY PAIN, HURTS TO SWALLOW DIAGNOSES: - Periapical abscess without sinus - Type 2 diabetes mellitus with diabetic chronic kidney disease - terminologist (current) use of aspirin - Other adjunct faculty for medical terminology (current) drug therapy - Contusion of left elbow, initial encounter - End stage renal disease - Periapical abscess without sinus - Contusion of left elbow, initial encounter - Hypertensive chronic kidney disease with stage 5 chronic kidney disease or end stage renal disease - Hyperlipidemia, unspecified - terminologist (current) use of insulin 12/07/2020 10:41 [facility] [place] TYPE: Emergency COMPLAINT: - FALL, LOWER BACK PAIN, WEAK DIAGNOSES: - Hypertensive chronic kidney disease with stage 5 chronic kidney disease or end stage renal disease - long-term (current) use of aspirin - Type 2 diabetes mellitus with diabetic chronic kidney disease - Other jail (current) drug therapy - Other chest pain - Fall on same level, unspecified, initial encounter - Sprain of unspecified site of left knee, initial encounter - Hyperlipidemia, unspecified 10/03/2020 21:02 [facility] [place] TYPE: Emergency COMPLAINT: - NECK PAIN DIAGNOSES: - Other giant cell arteritis - Hyperlipidemia, unspecified - Other adjunct faculty for medical terminology (current) drug therapy - Hypertensive chronic kidney disease with stage 5 chronic kidney disease or end stage renal disease - End stage renal disease - Headache, unspecified - long-term (current) use of insulin - Arteritis, unspecified - terminologist (current) use of oral hypoglycemic drugs - long-term (current) use of aspirin - Dependence on renal dialysis - Type 2 diabetes mellitus with diabetic chronic kidney disease 08/28/2020 15:59 [facility] [place] TYPE: Emergency COMPLAINT: - R SIDE RIB PAIN/ NON INJ DIAGNOSES: - Contusion of right front wall of thorax, initial encounter - Dependence on renal dialysis - Other jail (current) drug therapy - End stage renal disease - Hypertensive chronic kidney disease with stage 5 chronic kidney disease or end stage renal disease - Exposure to other specified factors, initial encounter - Type 2 diabetes mellitus with diabetic chronic kidney disease - Hyperlipidemia, unspecified - Other chest pain - long-term (current) use of aspirin - terminologist (current) use of insulin 08/22/2020 16:[address] [facility] [place] TYPE: Emergency COMPLAINT: - LEFT KNEE [...] aspirin - terminologist (current) use of insulin - Other jail (current) drug therapy - Hyperlipidemia, unspecified - Sprain of unspecified site of left knee, initial encounter - Fall on same level, unspecified, initial encounter INPATIENT VISIT TRACKING (12 MO.) No inpatient visits to display in this time frame [id number]
--- NOTE | 2021-04-15 17:24 | EKG ---
[facility] [address] [place] [address] Signed Atrial-sensed ventricular-paced rhythm Abnormal ECG When compared with ECG of 09-DEC-2020 11:20, Vent. rate has increased BY 14 BPM Confirmed by ARNOLD RUSHING MD ([id number]) on 04/15/2021 5:24:25 PM Electronically Signed By: ARNOLD RUSHING MD 04/15/21 1724 PATIENT NAME: ANITAELBAMELISSA PALMAE Electrocardiogram DATE OF : 46 PHYSICIAN: ARNOLD RUSHING MD REPORT #: [id number] REPORT IS CONFIDENTIAL AND NOT TO BE RELEASED WITHOUT AUTHORIZATION
== END 2021-04-13 12:54 | disposition home or self-care (01) ==
LOC: ED 09:55
DX: R07.9 Chest pain, unspecified (principal); E78.5 Hyperlipidemia, unspecified; E11.22 Type 2 diabetes mellitus with diabetic chronic kidney disease; I12.0 Hypertensive chronic kidney disease with stage 5 chronic kidney disease or end stage renal disease; N18.6 End stage renal disease; Z99.2 Dependence on renal dialysis; I25.2 Old myocardial infarction; Z79.82 Long term (current) use of aspirin; Z79.4 Long term (current) use of insulin; Z79.899 Other long term (current) drug therapy
CPT/HCPCS: 36415; 84484; 93005; 93010; 99285-25; A9270

== ENCOUNTER 2021-07-10 20:46 | Emergency (ER) | payer MEDICARE ==
[~2021-07-10] VITALS: Ht 157.5 cm; Wt 55.3 kg
--- OUTSIDE RECORDS SUMMARY | 2021-07-10 20:48 | XMS ---
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 Audrey VISIT COUNT (12 MO.) 9 ESTELA Campa TOTAL 9 NOTE: Visits indicate total known visits. ED/UCC VISIT TRACKING (12 MO.) 07/10/2021 20:46 [facility] [place] TYPE: Emergency COMPLAINT: - POST OP PROBLEM 04/13/2021 09:56 [facility] [place] TYPE: Emergency COMPLAINT: - CHEST PAIN DIAGNOSES: - Hypertensive chronic kidney disease with stage 5 chronic kidney disease or end stage renal disease - Old myocardial infarction - Other salvage determiner (current) drug therapy - Hyperlipidemia, unspecified - rn long term care (current) use of aspirin - Dependence on renal dialysis - End stage renal disease - Type 2 diabetes mellitus with diabetic chronic kidney disease - Chest pain, unspecified - group home (current) use of insulin 04/03/2021 15:50 [facility] [place] TYPE: Emergency COMPLAINT: - RT ARM PAIN/ NON INJURY DIAGNOSES: - Other acute postprocedural pain - group home (current) use of insulin - Hypertensive chronic kidney disease with stage 5 chronic kidney disease or end stage renal disease - Type 2 diabetes mellitus with diabetic chronic kidney disease - Pain in right arm - rn long term care (current) use of aspirin - End stage renal disease - Other salvage determiner (current) drug therapy - Hyperlipidemia, unspecified 02/01/2021 14:25 [facility] [place] TYPE: Emergency COMPLAINT: - LT KNEE PAIN/INJURY DIAGNOSES: - Pain in left knee - Hypertensive chronic kidney disease with stage 5 chronic kidney disease or end stage renal disease - Type 2 diabetes mellitus with diabetic chronic kidney disease - rn long term care (current) use of aspirin - Epigastric pain - rn long term care (current) use of insulin - Exposure to [...] mellitus with diabetic chronic kidney disease - rn long term care (current) use of aspirin - Other salvage determiner (current) drug therapy - Contusion of left elbow, initial encounter - End stage renal disease - Periapical abscess without sinus - Contusion of left elbow, initial encounter - Hypertensive chronic kidney disease with stage 5 chronic kidney disease or end stage renal disease - Hyperlipidemia, unspecified - group home (current) use of insulin 12/07/2020 10:41 [facility] [place] TYPE: Emergency COMPLAINT: - FALL, LOWER BACK PAIN, WEAK DIAGNOSES: - Hypertensive chronic kidney disease with stage 5 chronic kidney disease or end stage renal disease - rn long term care (current) use of aspirin - Type 2 diabetes mellitus with diabetic chronic kidney disease - Other fpc (current) drug therapy - Other chest pain - Fall on same level, unspecified, initial encounter - Sprain of unspecified site of left knee, initial encounter - Hyperlipidemia, unspecified 10/03/2020 21:02 [facility] [place] TYPE: Emergency COMPLAINT: - NECK PAIN DIAGNOSES: - Other giant cell arteritis - Hyperlipidemia, unspecified - Other fpc (current) drug therapy - Hypertensive chronic kidney disease with stage 5 chronic kidney disease or end stage renal disease - End stage renal disease - Headache, unspecified - group home (current) use of insulin - Arteritis, unspecified - group home (current) use of oral hypoglycemic drugs - rn long term care (current) use of aspirin - Dependence on renal dialysis - Type 2 diabetes mellitus with diabetic chronic kidney disease 08/28/2020 15:59 [facility] [place] TYPE: Emergency COMPLAINT: - R SIDE RIB PAIN/ NON INJ DIAGNOSES: - Contusion of right front wall of thorax, initial encounter - Dependence on renal dialysis - Other salvage determiner (current) drug therapy - End stage renal disease - Hypertensive chronic kidney disease with stage 5 chronic kidney disease or end stage renal disease - Exposure to other specified factors, initial encounter - Type 2 diabetes mellitus with diabetic chronic kidney disease - Hyperlipidemia, unspecified - Other chest pain - rn long term care (current) use of aspirin - rn long term care (current) use of insulin 08/22/2020 16:[address] [facility] [place] TYPE: Emergency COMPLAINT: - LEFT KNEE AND ANKLE INJURY DIAGNOSES: - End stage renal disease - Sprain of unspecified ligament of left ankle, initial encounter - Dependence on renal dialysis - Type 2 diabetes mellitus with diabetic chronic kidney disease - Hypertensive chronic kidney disease with stage 5 chronic kidney disease or end stage renal disease - rn long term care (current) use of aspirin - group home (current) use of insulin - Other salvage determiner (current) drug therapy - Hyperlipidemia, unspecified - Sprain of unspecified site of left knee, initial encounter - Fall on same level, unspecified, initial encounter INPATIENT VISIT TRACKING (12 MO.) 06/03/2021 06:11 [facility] TYPE: Internal Medicine DIAGNOSES: - End stage renal disease - Essential (primary) hypertension - Hyperkalemia - Other disorders of phosphorus metabolism - Dependence on renal dialysis - Anemia in chronic kidney disease [id number]
== END 2021-07-10 23:35 | disposition home or self-care (01) ==
LOC: ED 20:46
DX: T82.838A Hemorrhage due to vascular prosthetic devices, implants and grafts, initial encounter (principal); Y71.8 Miscellaneous cardiovascular devices associated with adverse incidents, not elsewhere classified; I12.0 Hypertensive chronic kidney disease with stage 5 chronic kidney disease or end stage renal disease; E11.22 Type 2 diabetes mellitus with diabetic chronic kidney disease; N18.6 End stage renal disease; Z99.2 Dependence on renal dialysis; Z95.0 Presence of cardiac pacemaker; Z95.1 Presence of aortocoronary bypass graft
CPT/HCPCS: 99283

== ENCOUNTER 2022-12-16 19:14 | Emergency (ER) | payer MEDICARE ==
[~2022-12-16] VITALS: Ht 157.5 cm; Wt 59.3 kg
[~2022-12-16 19:14] MED LIST changes: +CYPROHEPTADINE H4 MG PO; +NITROGLYCERIN0.4 MG SL
--- OUTSIDE RECORDS SUMMARY | 2022-12-16 19:16 | XMS ---
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 EMalcolm VISIT COUNT (12 MO.) 4 [facility] TOTAL 5 NOTE: Visits indicate total known visits. ED/UCC VISIT TRACKING (12 MO.) 12/16/2022 19:15 [facility] [place] TYPE: Emergency COMPLAINT: - CHEST PAIN 10/27/2022 15:25 [facility] TYPE: Emergency DIAGNOSES: - Chest pain, unspecified - Chest Pain 07/27/2022 13:43 [facility] [place] TYPE: Emergency COMPLAINT: - WEAKNESS DIAGNOSES: - Allergy status to other drugs, medicaments and biological substances - End stage renal disease - Hyperlipidemia, unspecified - Hypertensive chronic kidney disease with stage 5 chronic kidney disease or end stage renal disease - buttermaker (current) use of aspirin - Old myocardial infarction - Other retirement (current) drug therapy - Presence of aortocoronary bypass graft - Presence of cardiac pacemaker - Type 2 diabetes mellitus with diabetic chronic kidney disease - Type 2 diabetes mellitus with hypoglycemia without coma - Weakness 06/14/2022 06:54 [facility] [place] TYPE: Emergency COMPLAINT: - DIFFICULTY BREATHING DIAGNOSES: - Allergy status to other drugs, medicaments and biological substances - Contact with and (suspected) exposure to COVID-19 - Dependence on renal dialysis - End stage renal disease - Fluid overload, unspecified - Hyperlipidemia, unspecified - Hypertensive chronic kidney disease with stage 5 chronic kidney disease or end stage renal disease - buttermaker (current) use of aspirin - Old myocardial infarction - Other termite technician (current) drug therapy - Presence of aortocoronary bypass graft - Presence of cardiac pacemaker - Shortness of breath - Type 2 diabetes mellitus with diabetic chronic kidney disease 03/29/2022 03:10 [facility] [place] TYPE: Emergency COMPLAINT: - SOB N/V DIAGNOSES: - Allergy status to other drugs, medicaments and biological substances - COVID-19 - End stage renal disease - Heart failure, unspecified - Hyperlipidemia, unspecified - Hypertensive heart and chronic kidney disease with heart failure and with stage 5 chronic kidney disease, or end stage renal disease - buttermaker (current) use of aspirin - Old myocardial infarction - Other retirement (current) drug therapy - Shortness of breath INPATIENT VISIT TRACKING (12 MO.) No inpatient visits to display in this time frame [id number]
[2022-12-16 19:42] LABS: BASOPHILS 1.1 % (0-2); EOSINOPHILS 3.6 % (0-6); HEMATOCRIT 35.3 % (35.0-50.0); HEMOGLOBIN 11.6 g/dL (12.0-18.0); LYMPHOCYTES 26.5 % (24-44); MCH 33.8 (27-36); MCHC 32.8 g/dl (30-36); MONOCYTES 11.3 % (0-12); NEUTROPHILS 57.5 % (39-80); PLATELET COUNT 227 K/uL (140-440); RBC 3.43 M/ul (4.3-5.7); RDW 17.6 (10.5-15.0)
[2022-12-16 20:03] LABS: ALBUMIN 3.5 g/dL (3.4-5.0); ALBUMIN/GLOBULIN RATIO 0.74 (1.1-2.4); BILIRUBIN, TOTAL 0.4 ng/dL (0.2-1.0); BUN/CREATININE RATIO 6.86 (6.0-28.6); CALCIUM 9.7 mg/dL (8.5-10.1); CREATININE, SERUM 6.85 mg/dL (0.55-1.02); MAGNESIUM 2.4 mg/dL (1.8-2.4); PROTEIN, TOTAL 8.2 g/dL (6.4-8.2)
[2022-12-16 22:00] VITALS: BP 167/46
--- NOTE | 2022-12-18 06:03 | EKG ---
[facility] [address] [place] [address] Signed Atrial-sensed ventricular-paced rhythm Abnormal ECG When compared with ECG of 29-MAR-2022 03:56, Vent. rate has increased BY 4 BPM Confirmed by JONAS VANG MD ([id number]) on 12/18/2022 6:03:41 AM Electronically Signed By: JONAS VANG 12/18/22 0603 PATIENT NAME: ANITAELBA Electrocardiogram DATE OF : 46 PHYSICIAN: JONAS VANG REPORT #: [id number] REPORT IS CONFIDENTIAL AND NOT TO BE RELEASED WITHOUT AUTHORIZATION
== END 2022-12-16 22:00 | disposition home or self-care (01) ==
LOC: ED 19:14
PROVIDERS: Internal Medicine
DX: R07.89 Other chest pain (principal); E11.22 Type 2 diabetes mellitus with diabetic chronic kidney disease; I12.0 Hypertensive chronic kidney disease with stage 5 chronic kidney disease or end stage renal disease; E78.5 Hyperlipidemia, unspecified; N18.6 End stage renal disease; I25.2 Old myocardial infarction; Z88.8 Allergy status to other drugs, medicaments and biological substances; Z79.899 Other long term (current) drug therapy; Z79.82 Long term (current) use of aspirin
CPT/HCPCS: 36415; 71045; 80053; 83735; 83880; 84484; 85025; 93005; 93010; 99285-25; A9270

== ENCOUNTER 2023-03-04 07:12 | Emergency (ER) | payer MEDICARE ==
[~2023-03-04] VITALS: Ht 157.5 cm; Wt 65.0 kg
--- OUTSIDE RECORDS SUMMARY | 2023-03-04 07:15 | XMS ---
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 WHIT Dasilva [facility]: Primary Care Current MD [facility] \F\ [facility] PHONE: [phone] Yamileth has no Care Guidelines for this patient. E.Deepa VISIT COUNT (12 MO.) 5 [facility] Camp[facility] [address] [place] [address] TOTAL 6 NOTE: Visits indicate total known visits. ED/UCC VISIT TRACKING (12 MO.) 03/04/2023 07:12 [facility] TYPE: Emergency COMPLAINT: - CHEST PAIN 12/16/2022 19:15 [facility] TYPE: Emergency COMPLAINT: - CHEST PAIN DIAGNOSES: - Allergy status to other drugs, medicaments and biological substances - End stage renal disease - Hyperlipidemia, unspecified - Hypertensive chronic kidney disease with stage 5 chronic kidney disease or end stage renal disease - FDC (current) use of aspirin - Old myocardial infarction - Other chest pain - Other nursing home (current) drug therapy - Type 2 diabetes mellitus with diabetic chronic kidney disease 10/27/2022 15:25 [facility] TYPE: Emergency DIAGNOSES: - Chest pain, unspecified - Chest Pain 07/27/2022 13:43 [facility] TYPE: Emergency COMPLAINT: - WEAKNESS DIAGNOSES: - Allergy status to other drugs, medicaments and biological substances - End stage renal disease - Hyperlipidemia, unspecified - Hypertensive chronic kidney disease with stage 5 chronic kidney disease or end stage renal disease - terminal gauger (current) use of aspirin - Old myocardial infarction - Other nursing home (current) drug therapy - Presence of aortocoronary [...] disease or end stage renal disease - FDC (current) use of aspirin - Old myocardial infarction - Other nursing home (current) drug therapy - Presence of aortocoronary [...] disease, or end stage renal disease - terminal gauger (current) use of aspirin - Old myocardial infarction - 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 - Shortness of breath INPATIENT VISIT TRACKING (12 MO.) 01/21/2023 08:28 [facility] TYPE: Surgery DIAGNOSES: - Anemia in chronic kidney disease - Chronic kidney disease, unspecified - Colostomy status - Dependence on renal dialysis - Disorder of bone, unspecified - Disorder of mineral metabolism, unspecified - Diverticulitis of large intestine with perforation and abscess without bleeding - End stage renal disease - Essential (primary) hypertension - Other acute postprocedural pain [id number]
[2023-03-04 07:27] LABS: BASOPHILS 0.7 % (0-2); EOSINOPHILS 2.4 % (0-6); HEMATOCRIT 23.9 % (35.0-50.0); LYMPHOCYTES 17.2 % (24-44); MCH 34.7 (27-36); MCHC 33.4 g/dl (30-36); MCV 103.8 fl (81-99); MONOCYTES 7.8 % (0-12); NEUTROPHILS 71.9 % (39-80); PLATELET COUNT 155 K/uL (140-440); RDW 17.6 (10.5-15.0)
[2023-03-04 07:46] LABS: ALBUMIN 2.6 g/dL (3.4-5.0); ALBUMIN/GLOBULIN RATIO 0.57 (1.1-2.4); ANION GAP 9.8 (7-21); BILIRUBIN, TOTAL 0.5 ng/dL (0.2-1.0); BUN/CREATININE RATIO 7.85 (6.0-28.6); CALCIUM 8.7 mg/dL (8.5-10.1); CREATININE, SERUM 4.33 mg/dL (0.55-1.02); POTASSIUM 3.8 mmol/L (3.5-5.1); PROTEIN, TOTAL 7.2 g/dL (6.4-8.2)
[2023-03-04 14:16] VITALS: BP 141/43
== END 2023-03-04 14:15 | disposition home or self-care (01) ==
LOC: ED 07:12
PROVIDERS: Emergency Medicine
DX: R07.89 Other chest pain (principal); E11.22 Type 2 diabetes mellitus with diabetic chronic kidney disease; I12.0 Hypertensive chronic kidney disease with stage 5 chronic kidney disease or end stage renal disease; N18.6 End stage renal disease; I25.2 Old myocardial infarction; Z95.0 Presence of cardiac pacemaker; Z99.2 Dependence on renal dialysis; Z91.158 Patient's noncompliance with renal dialysis for other reason; Z88.8 Allergy status to other drugs, medicaments and biological substances; Z79.82 Long term (current) use of aspirin; Z79.890 Hormone replacement therapy
CPT/HCPCS: 36415; 71250; 71260; 80053; 83735; 84484; 85025; 85060; 99285-25; Q9967

== ENCOUNTER 2024-03-16 09:26 | Emergency (ER) | payer MEDICARE ==
[~2024-03-16] VITALS: Ht 157.5 cm; Wt 56.7 kg
[2024-03-16 10:10] LABS: BASOPHILS 0.7 % (0-2); EOSINOPHILS 2.2 % (0-6); HEMOGLOBIN 10.9 g/dL (12.0-18.0); LYMPHOCYTES 25.6 % (24-44); MCHC 34.2 g/dl (30-36); MCV 102.4 fl (81-99); MONOCYTES 8.9 % (0-12); NEUTROPHILS 62.6 % (39-80); PLATELET COUNT 149 K/uL (140-440); RBC 3.13 M/ul (4.3-5.7); RDW 15.3 (10.5-15.0)
[2024-03-16] MEDS ORDERED: HYDROXYZINE PAM25 MG PO (10:19)
[2024-03-16 10:22] LABS: ALBUMIN 3.2 g/dL (3.4-5.0); ALBUMIN/GLOBULIN RATIO 0.8 (1.1-2.4); ANION GAP 6.7 (7-21); BILIRUBIN, TOTAL 0.5 ng/dL (0.2-1.0); BUN/CREATININE RATIO 5.26 (6.0-28.6); CALCIUM 9.7 mg/dL (8.5-10.1); CREATININE, SERUM 3.23 mg/dL (0.55-1.02); POTASSIUM 3.7 mmol/L (3.5-5.1); PROTEIN, TOTAL 7.2 g/dL (6.4-8.2)
[2024-03-16 12:10] VITALS: BP 152/53
--- NOTE | 2024-03-16 22:14 | EKG ---
[facility] [address] [place] [address] Signed AV dual-paced rhythm Abnormal ECG When compared with ECG of 16-DEC-2022 19:20, Vent. rate has decreased BY 8 BPM Confirmed by Jannet Grady MD () on 03/16/2024 10:14:03 PM Electronically Signed By: JANNET GRADY MD 03/16/24 2214 PATIENT NAME: HOWARDELBA Electrocardiogram DATE OF : 46 PHYSICIAN: JANNET GRADY MD REPORT #: [id number] REPORT IS CONFIDENTIAL AND NOT TO BE RELEASED WITHOUT AUTHORIZATION
== END 2024-03-16 12:12 | disposition home or self-care (01) ==
LOC: ED 09:26
PROVIDERS: Emergency Medicine
DX: M79.601 Pain in right arm (principal); R07.9 Chest pain, unspecified; I12.0 Hypertensive chronic kidney disease with stage 5 chronic kidney disease or end stage renal disease; E11.22 Type 2 diabetes mellitus with diabetic chronic kidney disease; N18.6 End stage renal disease; I25.2 Old myocardial infarction; Z99.2 Dependence on renal dialysis; Z95.1 Presence of aortocoronary bypass graft; Z95.0 Presence of cardiac pacemaker; Z88.8 Allergy status to other drugs, medicaments and biological substances; Z79.899 Other long term (current) drug therapy; Z79.890 Hormone replacement therapy; Z79.82 Long term (current) use of aspirin
CPT/HCPCS: 36415; 80053; 82553; 84484; 85025; 93005; 93010; 99285

== ENCOUNTER 2024-04-17 11:26 | Emergency (ER) | payer MEDICARE ==
[~2024-04-17] VITALS: Ht 157.5 cm; Wt 55.0 kg
[~2024-04-17 11:26] MED LIST changes: +HYDROXYZINE PAM25 MG PO
--- OUTSIDE RECORDS SUMMARY | 2024-04-17 11:33 | XMS ---
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 Yamileth has no Care Guidelines for this patient. Audrey VISIT COUNT (12 MO.) 3 [facility] TOTAL 3 NOTE: Visits indicate total known visits. ED/C VISIT TRACKING (12 MO.) 04/17/2024 11:26 [facility] [place] TYPE: Emergency COMPLAINT: - FALL 04/16/2024 14:49 [facility] TYPE: Emergency COMPLAINT: - FALL/HEAD INJURY 03/16/2024 09:26 [facility] TYPE: Emergency COMPLAINT: - CHEST PAIN DIAGNOSES: - Allergy status to other drugs, medicaments and biological substances - Chest pain, unspecified - Dependence on renal dialysis - End stage renal disease - Hormone replacement therapy - Hypertensive chronic kidney disease with stage 5 chronic kidney disease or end stage renal disease - shelter (current) use of aspirin - Old myocardial infarction - Other senior care (current) drug therapy - Pain in right arm - Presence of aortocoronary bypass graft - Presence of cardiac pacemaker - Type 2 diabetes mellitus with diabetic chronic kidney disease INPATIENT VISIT TRACKING (12 MO.) No inpatient visits to display in this time frame [email or web address]
[2024-04-17] MEDS ORDERED: HYDROCODONE/APAP 10/325 1 TAB PO ONE (14:30)
[2024-04-17] MEDS ORDERED: ONDANSETRON 4 MG TAB ODT SL ONE (14:30)
[2024-04-17] MEDS ORDERED: HYDROCODON-ACE1 EA10 PO (19:58)
[2024-04-17] MEDS ORDERED: HYDROCODONE BIT/ACETAMINOPHEN 5/325 MG 1 TAB HOME.PACK PO ONE (20:00)
[2024-04-17 20:19] VITALS: BP 130/41
== END 2024-04-17 20:21 | disposition home or self-care (01) ==
LOC: ED 11:26
DX: S22.010A Wedge compression fracture of first thoracic vertebra, initial encounter for closed fracture (principal); S00.03XA Contusion of scalp, initial encounter; E11.22 Type 2 diabetes mellitus with diabetic chronic kidney disease; N18.6 End stage renal disease; E78.5 Hyperlipidemia, unspecified; I25.2 Old myocardial infarction; I10 Essential (primary) hypertension; W18.30XA Fall on same level, unspecified, initial encounter; Z79.899 Other long term (current) drug therapy; Z88.8 Allergy status to other drugs, medicaments and biological substances
CPT/HCPCS: 36415; 70450; 72125; 73502; 99284-25; A9270; G0480

== ENCOUNTER 2024-11-25 11:56 | Emergency (ER) | payer OTHER, MEDICARE, BC ==
[~2024-11-25] VITALS: Ht 157.5 cm; Wt 54.0 kg
--- OUTSIDE RECORDS SUMMARY | 2024-11-25 12:03 | XMS ---
PreManage Notification: ELBA HOWARD Security Underwriting Intern Events No recent Security Events currently on file CRITERIA MET - Group Notification CARE PROVIDERS There are no care providers on record at this time. Yamileth has no Care Guidelines for this patient. Audrey VISIT COUNT (12 MO.) 4 [facility] TOTAL 4 NOTE: Visits indicate total known visits. ED/C VISIT TRACKING (12 MO.) 11/25/2024 11:56 [facility] TYPE: Emergency COMPLAINT: - LT FOOT INJURY 04/17/2024 11:26 [facility] TYPE: Emergency COMPLAINT: - FALL DIAGNOSES: - Allergy status to other drugs, medicaments and biological substances - Contusion of scalp, initial encounter - End stage renal disease - Essential (primary) hypertension - Fall on same level, unspecified, initial encounter - Headache, unspecified - Hyperlipidemia, unspecified - Old myocardial infarction - Other ad operations coordinator (current) drug therapy - Type 2 diabetes mellitus with diabetic chronic kidney disease - Wedge compression fracture of first thoracic vertebra, initial encounter for closed fracture 04/16/2024 14:49 [facility] TYPE: Emergency [...] disease or end stage renal disease - half-way (current) use of aspirin - Old myocardial infarction - Other ad operations coordinator (current) drug therapy - Pain in right arm - Presence of aortocoronary bypass graft - Presence of cardiac pacemaker - Type 2 diabetes mellitus with diabetic chronic kidney disease INPATIENT VISIT TRACKING (12 MO.) No inpatient visits to display in this time frame [email or web address]
[2024-11-25] MEDS ORDERED: ACETAMINOPHEN 325 MG TAB PO ONE (13:15)
[2024-11-25 13:55] VITALS: BP 160/48
== END 2024-11-25 13:55 | disposition home or self-care (01) ==
LOC: ED 11:56
DX: S96.912A Strain of unspecified muscle and tendon at ankle and foot level, left foot, initial encounter (principal); E78.5 Hyperlipidemia, unspecified; E11.22 Type 2 diabetes mellitus with diabetic chronic kidney disease; I12.9 Hypertensive chronic kidney disease with stage 1 through stage 4 chronic kidney disease, or unspecified chronic kidney disease; N18.6 End stage renal disease; I25.2 Old myocardial infarction; W01.0XXA Fall on same level from slipping, tripping and stumbling without subsequent striking against object, initial encounter; Z79.82 Long term (current) use of aspirin; Z79.899 Other long term (current) drug therapy; Z88.8 Allergy status to other drugs, medicaments and biological substances
CPT/HCPCS: 73610; 73630; 99283; A9270